=== PATIENT | female | born 1955 | race Caucasian/White ===

== ENCOUNTER 2016-03-26 12:37 | Outpatient (CLI) | payer MEDICARE ==
[2016-03-26 13:15] LABS: #Basophils 0.1 thou/uL (0.0-0.2); #Eosinphils 0.1 thou/uL (0.0-0.7); #Lymphocytes 1.7 thou/uL (1.20-3.40); #Monocytes 0.6 thou/uL (0.11-0.59); #Neutrophils 6.5 thou/uL (1.40-6.50); %Basophils 0.7 % (0.0-1.0); %Eosinophils 0.9 % (0.0-10.0); %Monocytes 6.7 % (0.0-10.0); Hematocrit 46.9 % (36.0-47.0); Mean Platelet Volume 6.1 fL (7.4-10.4); White Blood Cell (WBC) Count 8.9 thou/uL (4.8-10.8)
[2016-03-26 13:24] LABS: ALT (SGPT) 37 U/L (0-55); AST (SGOT) 15 U/L (5-34); Alkaline Phosphatase 61 U/L (40-150); Anion Gap 16 mmol/L (10-20); BUN (Urea Nitrogen) 15 mg/dL (9.8-20.1); Bilirubin, Total 0.9 mg/dL (0.2-1.2); Calc. Creatinine Clearance 0 mL/min (70-130); Calcium 9.9 mg/dL (7.8-10.44); Carbon Dioxide 28 mmol/L (23-31); Chloride 102 mmol/L (98-107); Estimated GFR-MDRD 76; Globulin 2.1 g/dL (2.4-3.5); LDL Cholesterol, Calculated 87 mg/dL; Protein, Total 6.7 g/dL (5.8-8.1)
== END 2016-03-26 12:38 | disposition home or self-care (01) ==
LOC: HPCALD 12:37
PROVIDERS: ATTEND Family Medicine
DX: Z13.6 Encounter for screening for cardiovascular disorders (principal); I10 Essential (primary) hypertension
CPT/HCPCS: 80053; 80061; 84443; 85025

== ENCOUNTER 2016-04-02 15:22 | Outpatient (CLI) | payer MEDICARE ==
[2016-04-02 19:12] LABS: Free T3 2.1 pg/mL (1.71-3.71)
== END 2016-04-02 15:23 ==
LOC: HPCALD 15:22
PROVIDERS: ATTEND Family Medicine
DX: I10 Essential (primary) hypertension (principal)
CPT/HCPCS: 36415; 84439; 84481

== ENCOUNTER 2016-06-22 10:02 | Outpatient (CLI) | payer MEDICARE ==
[2016-06-22 11:33] LABS: Anion Gap 12 mmol/L (10-20); BUN (Urea Nitrogen) 20 mg/dL (9.8-20.1); Calc. Creatinine Clearance 0 mL/min (70-130); Carbon Dioxide 30 mmol/L (23-31); Chloride 103 mmol/L (98-107); Estimated GFR-MDRD 75; Glucose 92 mg/dL (80-115); Potassium 4.3 mmol/L (3.5-5.1); Sodium 141 mmol/L (136-145)
== END 2016-06-22 10:03 | disposition home or self-care (01) ==
LOC: HPCALD 10:02
PROVIDERS: ATTEND Family Medicine
DX: F60.7 Dependent personality disorder (principal); F41.8 Other specified anxiety disorders
CPT/HCPCS: 36415; 80048; 80178; 84443

== ENCOUNTER 2016-08-06 15:56 | Outpatient (CLI) | payer MEDICARE, MEDICAID | END 2016-08-06 15:57 | disposition home or self-care (01) | LOC: BURLAB 15:56 | PROVIDERS: ATTEND Psychiatry & Neurology Psychiatry | DX: F33.2 Major depressive disorder, recurrent severe without psychotic features (principal); F41.9 Anxiety disorder, unspecified; Z79.899 Other long term (current) drug therapy | CPT/HCPCS: 80178 ==

== ENCOUNTER 2016-08-07 08:38 | Outpatient (CLI) | payer MEDICARE, MEDICAID ==
[2016-08-07 09:02] LABS: Bilirubin Negative (Negative); Blood, Urine Negative (Negative); Clarity Clear (Clear); Glucose, Urine (Dipstick) Negative (Negative); Leukocyte Negative (Negative); Nitrite Negative (Negative); Protein, Urine (Dipstick) Negative (Neg-Trace); Urobilinogen 0.2 mg/dL (0.2-1.0); pH, Urine 6.5 (5.0-9.0)
[2016-08-07 09:08] LABS: #Basophils 0.1 thou/uL (0.0-0.2); #Eosinphils 0.2 thou/uL (0.0-0.7); #Lymphocytes 2.4 thou/uL (1.20-3.40); #Monocytes 0.6 thou/uL (0.11-0.59); #Neutrophils 6.1 thou/uL (1.40-6.50); %Basophils 0.7 % (0.0-1.0); %Eosinophils 2.2 % (0.0-10.0); %Lymphocytes 25.8 % (21.0-51.0); %Monocytes 6.6 % (0.0-10.0); %Neutrophils 64.7 % (42.0-75.0); Hemoglobin 15.2 g/dL (12.0-16.0); Mean Corpuscular HGB CONC 33.6 g/dL (32.0-36.0); Mean Corpuscular Hemoglobin 32.4 pg (27.0-31.0); Mean Corpuscular Volume 96.4 fl (81.0-99.0); Mean Platelet Volume 7.2 fL (7.4-10.4); Platelet Count 246 thou/uL (130-400); RBC Distribution Width 11.6 % (11.5-14.5); Red Blood Cell (RBC) Count 4.69 mill/uL (4.20-5.40); White Blood Cell (WBC) Count 9.4 thou/uL (4.8-10.8)
[2016-08-07 09:17] LABS: Bacteria/HPF None Seen HPF (None Seen); RBC/HPF None Seen HPF (0-3); Squamous Epithelial 0-3 HPF (0-3); WBC/HPF None Seen HPF (0-3)
[2016-08-07 09:23] LABS: Cocaine Metabolite Screen Not Detected (NotDetected); Phencyclidine (PCP) Not Detected (NotDetected); THC/Cannabinoid Screen Not Detected (NotDetected)
[2016-08-07 09:24] LABS: Amphetamine Not Detected (NotDetected); Barbiturates Screen Not Detected (NotDetected); Benzodiazepine Screen Not Detected (NotDetected); Medtox Control Line Valid? VALID (VALID); Methadone Not Detected (NotDetected); Methamphetamine Not Detected (NotDetected); Opiate Screen Not Detected (NotDetected); Oxycodone Screen Not Detected (NotDetected); Tricyclic Screen Detected (NotDetected)
[2016-08-07 10:07] LABS: ALT (SGPT) 193 U/L (8-55); AST (SGOT) 37 U/L (5-34); Albumin 4.4 g/dL (3.4-4.8); Alkaline Phosphatase 87 U/L (40-150); Anion Gap 13 mmol/L (10-20); BUN (Urea Nitrogen) 18 mg/dL (9.8-20.1); Bilirubin, Total 0.7 mg/dL (0.2-1.2); Calc. Creatinine Clearance 0 mL/min (70-130); Calcium 9.2 mg/dL (7.8-10.44); Carbon Dioxide 26 mmol/L (23-31); Cardiac Risk 2.6 (Less than 4.5); Chloride 106 mmol/L (98-107); Cholesterol 168 mg/dl (< 200 Desired); Estimated GFR-MDRD 83; Globulin 2.1 g/dL (2.4-3.5); Glucose 105 mg/dL (80-115); HDL Cholesterol 64 mg/dL (>60 Neg Risk); LDL Cholesterol, Calculated 91 mg/dL; Potassium 4.3 mmol/L (3.5-5.1); Protein, Total 6.5 g/dL (6.0-8.3); Sodium 141 mmol/L (136-145); Triglycerides 67 mg/dL (Less than 150)
== END 2016-08-07 08:39 | disposition home or self-care (01) ==
LOC: BURLAB 08:38
PROVIDERS: ATTEND Psychiatry & Neurology Psychiatry
DX: Z51.81 Encounter for therapeutic drug level monitoring (principal); F33.2 Major depressive disorder, recurrent severe without psychotic features; F41.9 Anxiety disorder, unspecified; Z79.899 Other long term (current) drug therapy

== ENCOUNTER 2017-01-24 15:08 | Outpatient (CLI) | payer MEDICARE, MEDICAID ==
--- NOTE | 2017-01-24 15:47 | RAD ---
LUMBAR SPINE THREE VIEWS: History: Fall, back injury. FINDINGS: There are five lumbar type vertebrae. Pedicles are intact. Mild right convex curvature is apparent o n the frontal view. Vertebral body heights and AP alignment are maintained. There is osteophytosis t hroughout the lower facets. IMPRESSION: Lumbar spondylosis. No acute osseous abnormalities are demonstrated. POS: [facility]
== END 2017-01-24 15:09 | disposition home or self-care (01) ==
LOC: BURRAD 15:08
PROVIDERS: ATTEND Family Medicine
DX: W19.XXXA Unspecified fall, initial encounter (principal); M47.816 Spondylosis without myelopathy or radiculopathy, lumbar region
CPT/HCPCS: 72100

== ENCOUNTER 2017-01-29 11:01 | Outpatient (CLI) | payer MEDICARE, MEDICAID ==
--- NOTE | 2017-01-29 14:00 | RAD ---
THORACIC SPINE THREE VIEWS: 01/29/2017 COMPARISON: 01/12/2017 FINDINGS: The posterior thoracic fusion with pedicle screws spanning from T1 to T5 is again noted. While not seen optimally, there does appear to be a compression fracture of the T3 vertebral body. Again, whi michelle this area is difficult to see well on the plain radiographs, it may be slightly more compressed t frausto on the prior film. This area would probably be best assessed via CT or MRI, even with the artif act caused by the rods. Minor degenerative changes are seen elsewhere in the spine. Very slight curvature to the spine, con vexed left, is noted, as usual. IMPRESSION: Presumed compression of T3. It might be a little more so than on the prior study, but this is uncer tain. Cross-sectional imaging studies would be needed to better demonstrate it. POS: [facility]
== END 2017-01-29 11:02 | disposition home or self-care (01) ==
LOC: BURRAD 11:01
PROVIDERS: ATTEND Family Medicine
DX: S24.109S Unspecified injury at unspecified level of thoracic spinal cord, sequela (principal)
CPT/HCPCS: 72072